=== PATIENT | female | born 1995 | race Caucasian/White ===

== ENCOUNTER 2023-12-17 13:52 | Day surgery (SDC) | payer OTHER ==
[2023-12-17] MEDS ORDERED: Sodium Chloride 0.9(Preservative Free) 10 ML IJ ONE (13:53)
[2023-12-17] MEDS ORDERED: LIDOCAINE HCL 1% 50 MG/5 ML VL PF IJ ONE (13:53)
[2023-12-17] MEDS ORDERED: Decadron 4 MG INJ IV ONE (13:53)
[2023-12-17 14:24] LABS: HCG URINE TEST NEGATIVE (NEGATIVE)
[2023-12-17] MEDS ORDERED: Versed 2 MG/2 ML Injection ONE (14:52)
[2023-12-17] MEDS ORDERED: DIPRIVAN 200 MG/20 ML IV ONE ×2 (15:26→15:35)
[2023-12-17] MEDS ORDERED: Lactated Ringers 1,000 ML IV ONE (15:42)
[2023-12-17] MEDS ORDERED: MORPHINE SULFATE 2 MG INJ ONE ×2 (16:00→16:15)
--- NOTE | 2023-12-17 17:22 | XRAY ---
Indication: Right piriformis injection. Intraoperative fluoroscopy provided for 7 seconds. Single digital spot image submitted for interpretation demonstrates posterior needle tip projecting over right piriformis. Small amount of contrast injected for needle tip placement. Correlate with intraoperative findings/report.
--- NOTE | 2023-12-17 17:24 | XRAY ---
Indication: Right L5-S2 transforaminal MICHAEL. Intraoperative fluoroscopy provided for 48 seconds. 8 digital spot image submitted for interpretation demonstrates posterior needle tips projecting over the expected right L5-S2 nerve roots. Small amount of contrast injected for needle tip placement. Correlate with intraoperative findings/report.
--- NOTE | 2023-12-17 17:28 | XRAY ---
48 seconds of fluoroscopy was used in surgery for a right L5-S2 transforaminal MICHAEL.
--- NOTE | 2023-12-17 17:28 | XRAY ---
7 seconds of fluoroscopy was used in surgery for a right piriformis injection.
== END 2023-12-17 16:38 | disposition home or self-care (01) ==
LOC: SDC-PAIN 13:52
PROVIDERS: ATTEND Psychiatry & Neurology Pain Medicine
DX: M54.16 Radiculopathy, lumbar region (principal); M79.18 Myalgia, other site
CPT/HCPCS: 20552; 64483; 64484; 72100; 72170; 77002; 77003; 81025; J1100; J2001; J2250; J2270; J2704; Q9966